=== PATIENT | male | born 1970 | race Caucasian/White ===

== ENCOUNTER 2018-09-24 17:54 | Emergency (ER) | payer OTHER ==
[2018-09-24 18:11] VITALS: BP 130/78; PULSE 64; TEMP 98.4; BMI 20.2
--- NOTE | 2018-09-24 18:53 | PDOC ---
History of Present Illness - General Chief Complaint: Back Pain Stated Complaint: BACK PAIN Time Seen by Provider: 09/24/18 18:14 History Source: Patient Exam Limitations: No Limitations Past History - Past Medical History Allergies/Adverse Reactions: Allergies Allergy/AdvReac Type Severity Reaction Status Date / Time No Known Allergies Allergy Verified 09/24/18 18:11 Home Medications: Ambulatory Orders Cyclobenzaprine HCl [Flexeril 10 mg] 10 mg PO BID PRN #30 tablet 09/24/18 COPD: No - Suicide/Smoking/Psychosocial Hx Smoking History: Current every day smoker Number of Cigarettes Smoked Daily: 1 Information on smoking cessation initiated: No *Physical Exam - Vital Signs Last Vital Signs Temp Pulse Resp BP Pulse Ox 98.4 F 64 18 130/78 100 09/24/18 18:03 09/24/18 18:03 09/24/18 18:03 09/24/18 18:03 09/24/18 18:03 - Physical Exam General Appearance: No: Apparent Distress Respiratory/Chest: positive: Lungs Clear, Normal Breath Sounds. negative: Respiratory Distress Cardiovascular: positive: Regular Rhythm, Regular Rate, S1, S2. negative: Murmur Musculoskeletal: positive: Other (+B/L paraspinal TTP along lumbar region (R>L)) . 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 States he has not seen a PCP in a long time and was hoping to get full physical done; has contacted his insurance but has not yet made appointment with anyone yet. Mentions he does a lot of heavy lifting as part of his work and pain is worse with movement of spine and with sitting down. Denies weakness of extremities, fever, sob, cp, abd pain, n/v, urinary complaints, saddle/groin paresthesia. Likely sciatica Patient did not want any meds right now Will refer to primary care center clinic Stable for dc 09/24/18 18:41 *DC/Admit/Observation/Transfer Diagnosis at time of Disposition: Sciatica Qualifiers: Laterality: right Qualified Code(s): M54.31 - Sciatica, right side - Discharge Dispostion Disposition: HOME Condition at time of disposition: Stable Decision to Admit order: No - Prescriptions Prescriptions: Cyclobenzaprine HCl [Flexeril 10 mg] 10 mg PO BID PRN #30 tablet PRN Reason: Muscle Spasms - Referrals Referrals: Janna Colon MD [Staff Physician] - 2 Days - Patient Instructions Printed Discharge Instructions: DI for Back Pain With Sciatica Additional Instructions: Thank you for choosing [facility]. It was a pleasure taking care of you. It is possible your symptoms are due to sciatica. You may take Motrin 600 mg every 6 hours by mouth as needed for mild to moderate pain. Take Motrin with food. You were also given Flexeril to take as needed for muscle spasms. This medication can also make you drowsy so please be cautious with driving or performing heavy physical work. Applying warm compresses may also help Also consider seeing a physical therapist You were referred to primary care center for follow-up Return to the Emergency Department if your symptoms worsen or persist, you have fever, shortness of breath, chest pain, severe abdominal pain, vomiting, weakness of extremities (arms and/or legs), changes in walking, unable to control bowel or bladder movements or other concerning symptoms. - Post Discharge Activity
== END 2018-09-24 19:04 | disposition home or self-care (01) ==
LOC: JERFT 17:54
DX: M54.41 Lumbago with sciatica, right side (principal)
CPT/HCPCS: 99281-25

== ENCOUNTER 2020-03-26 12:35 | Day surgery (SDC) | payer OTHER ==
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
[2020-03-24 14:39] VITALS: BMI 20.9
[2020-03-26] MEDS ORDERED: PROPOFOL 20 ML ONE ×2 (12:42→15:24)
[2020-03-26] MEDS ORDERED: MIDAZOLAM HCL 2 MG/2 ML SINGLE DOSE VIAL ONE ×2 (12:51→14:16)
[2020-03-26] MEDS ORDERED: ROPIVACAINE HCL 0.5% 30ML VIAL ONE (14:16)
[2020-03-26] MEDS ORDERED: GUM MASTIC/STORAX/MSAL/ALCOHOL 1 DRP DROPSBTL MC ONE (15:10)
[2020-03-26 17:56] VITALS: TEMP 96
[2020-03-26 17:57] VITALS: BP 110/65; PULSE 61
--- NOTE | 2020-03-26 18:28 | OP ---
DATE OF OPERATION: 03/26/2020 PREOPERATIVE DIAGNOSIS: Left radial shaft malunion/nonunion. POSTOPERATIVE DIAGNOSIS: Left radial shaft malunion/nonunion. OPERATIVE PROCEDURE: Repair of left radius shaft nonunion/malunion. SURGEON: Yolanda Charles M.D. ENGAGEMENT MGR: Cassandra Deleon ANESTHESIA: Regional. COMPLICATIONS: None. ESTIMATED BLOOD LOSS: Minimal. INDICATION FOR PROCEDURE: The patient is a 50-year-old male with the above findings, indicated for operative treatment. Risks, benefits, and alternatives were discussed with the patient at length. Proper informed consent was obtained. PROCEDURE: After proper identification of the patient and correct operative site, patient was brought to the operating room and placed supine on the operating room table, all bony prominences well padded. Left upper extremity was prepped and draped in the usual sterile fashion. Well padded tourniquet was placed with a sterile prep. Esmarch bandage to exsanguinate the left upper extremity. Tourniquet inflated to 250 mmHg. A Britton approach was used to the volar aspect of the radial shaft. Incision taken sharply through the skin with sharp and blunt dissection of the subcutaneous tissues. Interval within the flexor carpi radialis and the radial artery was developed. Radial artery branches were divided and coagulated as needed. I coagulated or ligated as needed. Musculature was elevated off the radial shaft, and the fracture site was identified. There was found to be motion of the fracture site; however, there was abundant callus formation in a displaced position. Extensive removal of callus was necessary to visualize the ends of the bones and to perform the reduction. Once this was performed, reduction was achieved and confirmed radiographically. A [employer] small fragment locking plate was then placed on the volar aspect of the radius, after bending the plate with a very gentle . In a compression mode the plate was affixed to the bone with 3 proximal and 3 distal bicortical nonlocking screws. This provided secure stable fixation of fracture and anatomic reduction of fracture confirmed radiographically. The wrist, the forearm was taken through range of motion, and there was full pronation and supination without any instability of the , and this was confirmed radiographically as well. Scapholunate ligament was stressed and found to be stable. Bone graft was packed into the fracture site from the callus that was previously formed, and the wound was repaired in layers using 4-0 Vicryl and 4-0 Monocryl sutures. Steri-Strips and sterile dressings were placed. Compartments were left open. The patient was brought to the recovery room in stable condition. He tolerated the procedure well. Micah Ingram, the employee relations assistant, was integral throughout the procedure. He was necessary to hold reduction and position the arm while hardware was being placed. This could not have been performed without a skilled operative employee relations assistant. YOLANDA CHARLES M.D. [id number]
== END 2020-03-26 17:30 | disposition home or self-care (01) ==
LOC: FASU 12:35
PROVIDERS: ATTEND Orthopaedic Surgery Hand Surgery
PROC: 0PSJ04Z Reposition Left Radius with Internal Fixation Device, Open Approach (ICD-10-PCS; principal; 2020-03-26 15:03)
DX: S52.32 Transverse fracture of shaft of radius (principal); X58.XXXD Exposure to other specified factors, subsequent encounter
CPT/HCPCS: 25400; C1713; 73110-TC-LT-FY; 73130-TC-LT-FY